=== PATIENT | male | born 1990 | race African-American/Black ===

== ENCOUNTER 2023-11-26 23:04 | Emergency (ER) | payer BC ==
[~2023-11-26] VITALS: Ht 177.8 cm; Wt 70.5 kg
[2023-11-26 23:26] VITALS: BP 136/77; PULSE 77; RESP 16; TEMP 98.3
[2023-11-27] MEDS ORDERED: IBUP-1554 PO (00:10)
[2023-11-27] MEDS ORDERED: ACETAMINOPHEN/CODEINE 300-30 MG TABLET PO ONE (00:15)
[2023-11-27] MEDS ORDERED: CEPHALEXIN MONOHYDRATE 500 MG CAPSULE PO ONE (00:15)
[2023-11-27] MEDS: NEOMYCIN/POLYMYXIN B/HYDROCORT 10 ML OTIC SUSPENSION AS ONE (00:48)
== END 2023-11-27 00:56 | disposition home or self-care (01) ==
LOC: EMS 23:05
DX: H60.92 Unspecified otitis externa, left ear (principal); F17.210 Nicotine dependence, cigarettes, uncomplicated
CPT/HCPCS: 99282; Z7502; Z7610

== ENCOUNTER 2025-06-30 17:59 | Emergency (ER) | payer BC, OTHER ==
[~2025-06-30] VITALS: Ht 177.8 cm; Wt 66.0 kg
[~2025-06-30 17:59] MED LIST: IBUP-1554 PO
[2025-06-30 18:03] VITALS: BP 112/57; PULSE 82; RESP 15; TEMP 97.9; O2SAT 100
[2025-06-30] MEDS: PROPARACAINE HCL 0.5% 15 ML OPHTHALMIC SOLUTION OS ONE (18:30)
[2025-06-30] MEDS: FLUORESCEIN SODIUM 1 MG STRIP OS ONE (18:30)
[2025-06-30] MEDS ORDERED: OFLO5DRO49 OS (19:03)
[2025-06-30] MEDS: PERTUSS(ACELL),DIPH,TET/PF 0.5 ML SYRINGE [ADULT] IM. ONE (19:21)
[2025-06-30] MEDS: OFLOXACIN 0.3% 5 ML OPHTHALMIC SOLUTION OS ONE (19:21)
== END 2025-06-30 19:22 | disposition home or self-care (01) ==
LOC: EMS 17:59
DX: S05.02XA Injury of conjunctiva and corneal abrasion without foreign body, left eye, initial encounter (principal); H53.8 Other visual disturbances; F17.210 Nicotine dependence, cigarettes, uncomplicated; F14.90 Cocaine use, unspecified, uncomplicated; Z79.899 Other long term (current) drug therapy; X58.XXXA Exposure to other specified factors, initial encounter; Y93.89 Activity, other specified; Y92.89 Other specified places as the place of occurrence of the external cause; Y99.8 Other external cause status
CPT/HCPCS: 99283